=== PATIENT | female | born 1990 | race Caucasian/White ===

== ENCOUNTER 2016-05-26 12:20 | Emergency (ER) | payer MEDICAID ==
[2015-08-06 11:37] VITALS: Ht 157.5 cm; Wt 63.5 kg
[~2016-05-26] VITALS: Ht 157.5 cm; Wt 63.5 kg
[2016-05-26 12:20] VITALS: BP 114/82; PULSE 115; RESP 19; TEMP 98.1; O2SAT 98
[~2016-05-26 12:20] MED LIST: DIVA250T34 PO; DIVA500T7 PO; FAMO20TA8 PO; LEVO500T20 PO; LITH300T15 PO; LITHIUM; METO-290 PO; QUET200T30 PO; SER100 PO; SER25 PO; [UNRECOGNIZED DRUG - CODE] PO; [UNRECOGNIZED DRUG - REMARK]
[2016-05-26 13:02] LABS: BASOPHILS # (AUTO) 0.1 K/uL (0.0-0.2); BASOPHILS % (AUTO) 0.6 % (0.0-2.0); EOSINOPHILS # (AUTO) 0.1 K/uL (0.0-0.4); EOSINOPHILS % (AUTO) 0.9 % (0.0-4.0); HEMATOCRIT 31.2 % (36-48); LYMPHOCYTES # (AUTO) 1.8 K/uL (1.0-5.5); LYMPHOCYTES % (AUTO) 19.7 % (20.5-51.5); MEAN CORPUSCULAR HEMOGLOBIN 30 pg (27-31); MEAN CORPUSCULAR HGB CONC 35 % (32-36); MEAN CORPUSCULAR VOLUME 86 fL (79.0-98.0); MONOCYTES # (AUTO) 0.7 K/uL (0.0-1.0); MONOCYTES % (AUTO) 7.2 % (1.7-9.3); NEUTROPHILS # (AUTO) 6.6 K/uL (1.8-7.7); NEUTROPHILS % (AUTO) 71.6 % (40.0-70.0); PLATELET COUNT (AUTO) 336 K/uL (130-430); RED BLOOD CELL COUNT(AUTO) 3.62 MIL/uL (4.2-6.2); RED CELL DISTRIBUTION WIDTH 12.9 % (9.0-15.0); WHITE BLOOD COUNT (AUTO) 9.3 K/uL (4.8-10.8)
[2016-05-26 13:10] LABS: CALCIUM 8.8 mg/dL (8.4-11.0); CREATININE 0.55 mg/dL (0.55-1.30); POTASSIUM 3.7 mmol/L (3.5-5.1)
[2016-05-26 13:11] LABS: PROTHROMBIN TIME 10.6 SECS (9.5-12.5)
[2016-05-26 13:15] LABS: ALBUMIN 3.6 g/dL (3.4-4.8); TOTAL BILIRUBIN 0.6 mg/dL (0.0-1.0); TOTAL PROTEIN, SERUM 7.8 g/dL (6.4-8.3)
--- NOTE | 2016-05-26 14:00 | NUR ---
pt. to bed 7, report received from Nadya LLANES
--- NOTE | 2016-05-26 14:15 | NUR ---
Pt. to ER STATES SHE HAS HAD ONE MONTH OF HEAVY VAGINAL BLEEDING WITH CLOTS, FEELS WEAK AND DIZZY OCCASIONALLY, DENIES PAIN, DENIES N/V/D, BP 121/72, HX OF OVARIAN CYST
--- NOTE | 2016-05-26 14:21 | NUR ---
ER at bedside examining patient.
[2016-05-26 14:25] VITALS: BP 128/82; PULSE 72; RESP 14; TEMP 98.1; O2SAT 98
--- NOTE | 2016-05-26 14:30 | NUR ---
Patient given written and verbal discharge instructions and verbalizes understanding. ER MD DR. URBANO discussed with patient the results and treatment provided. Patient in stable condition. ID arm band removed. Rx of ZITHROMAX given. Patient educated on pain management and to follow up with PMD. Pain Scale 0/10 Opportunity for questions provided and answered.
== END 2016-05-26 14:25 | disposition home or self-care (01) ==
LOC: SED 12:20
DX: N93.9 Abnormal uterine and vaginal bleeding, unspecified (principal); J40 Bronchitis, not specified as acute or chronic; F31.9 Bipolar disorder, unspecified
CPT/HCPCS: 36415; 80053; 84703; 85025; 85610-TC; 85730-TC; 86900; 86901; 99285

== ENCOUNTER 2017-09-06 10:53 | Inpatient (IN) | payer MEDICAID ==
[~2017-09-06] VITALS: Ht 157.5 cm; Wt 81.6 kg
[~2017-09-06 10:53] MED LIST changes: -DIVA250T34 PO; -FAMO20TA8 PO; -LEVO500T20 PO; -LITHIUM; -SER25 PO; -[UNRECOGNIZED DRUG - CODE] PO; -[UNRECOGNIZED DRUG - REMARK]
[2017-09-06 10:59] VITALS: BP_SYST 148
[2017-09-06] MEDS ORDERED: NACL 0.9% 1,000 ML IV ONE (11:16)
[2017-09-06 11:44] LABS: BILIRUBIN,URINE NEGATIVE (NEGATIVE); BLOOD, URINE NEGATIVE (NEGATIVE); CLARITY/URINE CLEAR (CLEAR); COLOR,URINE YELLOW (YELLOW); GLUCOSE,URINE NEGATIVE (NEGATIVE); KETONES,URINE NEGATIVE (NEGATIVE); LEUKOCYTE ESTERASE ,URINE TRACE (NEGATIVE); NITRITE, URINE NEGATIVE (NEGATIVE); PROTEIN URINE NEGATIVE (NEGATIVE); UROBILINOGEN,URINE 0.2 (0.2-1.0)
[2017-09-06 11:44] LABS: BASOPHILS % (AUTO) 0.5 % (0.0-2.0); EOSINOPHILS # (AUTO) 0.1 K/uL (0.0-0.4); EOSINOPHILS % (AUTO) 2.2 % (0.0-4.0); HEMATOCRIT 36.4 % (36-48); HEMOGLOBIN 12.7 g/dL (12.0-16.0); LYMPHOCYTES # (AUTO) 1.7 K/uL (1.0-5.5); LYMPHOCYTES % (AUTO) 29.9 % (20.5-51.5); MEAN CORPUSCULAR HEMOGLOBIN 31 pg (27-31); MEAN CORPUSCULAR HGB CONC 35 % (32-36); MEAN CORPUSCULAR VOLUME 88 fL (79.0-98.0); MONOCYTES # (AUTO) 0.4 K/uL (0.0-1.0); MONOCYTES % (AUTO) 7.2 % (1.7-9.3); NEUTROPHILS # (AUTO) 3.4 K/uL (1.8-7.7); NEUTROPHILS % (AUTO) 60.2 % (40.0-70.0); PLATELET COUNT (AUTO) 261 K/uL (130-430); RED BLOOD CELL COUNT(AUTO) 4.16 MIL/uL (4.2-6.2); RED CELL DISTRIBUTION WIDTH 12.3 % (9.0-15.0); WHITE BLOOD COUNT (AUTO) 5.6 K/uL (4.8-10.8)
[2017-09-06 11:52] LABS: CALCIUM 8.4 mg/dL (8.4-11.0); CREATININE 0.67 mg/dL (0.55-1.30); POTASSIUM 3.7 mmol/L (3.5-5.1)
[2017-09-06 11:56] LABS: ALBUMIN 3.5 g/dL (3.4-4.8); TOTAL BILIRUBIN 0.5 mg/dL (0.0-1.0)
[2017-09-06 12:23] LABS: BACTERIA,URINE FEW /HPF (None Seen); MUCUS,URINE None Seen /LPF (None Seen); RBC,URINE 0-3 /HPF (0-3)
[2017-09-06] MEDS ORDERED: LR 1,000 ML IV SCH (13:15)
[2017-09-06] MEDS ORDERED: BUPR300T55 PO (13:51)
[2017-09-06] MEDS ORDERED: NA PHOS,M-B/NA PHOS,DI-BA 118 ML (FLEET ENEMA) RC ONE (15:15)
[2017-09-06] MEDS ORDERED: MAGNESIUM CITRATE 300 ML ORAL SOLUTION PO ONE (15:15)
[2017-09-06 16:31] VITALS: BP_SYST 119
[2017-09-06 16:57] VITALS: BP_SYST 119
== END 2017-09-06 17:00 | disposition home or self-care (01) | DRG 566 ==
LOC: SED 10:53 → SMU 13:09
PROVIDERS: ADMIT Obstetrics & Gynecology; ATTEND Obstetrics & Gynecology
DX: O26.891 Other specified pregnancy related conditions, first trimester (principal); F31.9 Bipolar disorder, unspecified; O34.81 Maternal care for other abnormalities of pelvic organs, first trimester; K59.00 Constipation, unspecified; O99.341 Other mental disorders complicating pregnancy, first trimester; Z3A.01 Less than 8 weeks gestation of pregnancy; Z79.899 Other long term (current) drug therapy
CPT/HCPCS: 36415; 76700-TC; 76801; 76817; 80053; 81000-TC; 83690-TC; 84702-TC; 85025; 87086; 96360; 99285; J7030; J7120

== ENCOUNTER → 2019-10-26 | Emergency (ER) | payer OTHER, SELFPAY ==
[~2019-10-26] VITALS: Ht 154.9 cm; Wt 72.6 kg
[~2019-10-26] MED LIST changes: +BUPR300T55 PO; -DIVA500T7 PO; -LITH300T15 PO; -METO-290 PO; -SER100 PO
[2019-10-26 20:51] VITALS: BP_SYST 139
== END | disposition still patient (30) ==
LOC: SED 19:48
DX: R50.9 Fever, unspecified (principal); Z53.21 Procedure and treatment not carried out due to patient leaving prior to being seen by health care provider